=== PATIENT | male | born 1970 | race Caucasian/White ===

== ENCOUNTER 2018-08-02 10:29 | Emergency (ER) | payer BC ==
--- NOTE | 2018-08-02 10:52 | ER Document Report ---
ED Medical Screen (RME) - General Chief Complaint: Flank Pain Stated Complaint: FLANK PAIN Time Seen by Provider: 08/02/18 10:34 Primary Care Provider: CHRISTIN HEWITT DO [Primary Care Provider] - Follow up as needed Notes: 48-year-old male patient comes emergency room complaining of right lateral back pain just below the rib margin. He reports yesterday he was going between a sitting and standing position when he coughed hard and felt like a pulled muscle in that region. Since then with each cough the area will hurt. It was much worse this morning. He is also reporting a cough that is lasted greater than a month, he has been doing a lot of air travel recently. He also reports a recent exposure to the stachybotrys mold in a house in [facility]. He has seen an ear nose and throat doctor recently and had nasopharyngeal endoscopy. He was given an unknown medication to take. He is also recently been on a Z-Kb and a cough medications. I have greeted and performed a rapid initial assessment of this patient. A comprehensive ED assessment and evaluation of the patient, analysis of test results and completion of the medical decision making process will be conducted by additional ED providers. TRAVEL OUTSIDE OF THE [place] IN LAST 30 DAYS: No - Related Data Allergies/Adverse Reactions: No Known Allergies Allergy (Verified 08/02/18 10:30) Past Medical History - Social History Chew tobacco use (# tins/day): No Frequency of alcohol use: None Drug Abuse: None Renal/ Medical History: Denies: Hx Peritoneal Dialysis Physical Exam - Vital signs Vitals: Temp Pulse Resp BP Pulse Ox 98.9 F 65 16 153/86 H 99 08/02/18 10:33 08/02/18 10:33 08/02/18 10:33 08/02/18 10:33 08/02/18 10:33 Course - Vital Signs Vital signs: Temp Pulse Resp BP Pulse Ox 98.9 F 65 16 153/86 H 99 08/02/18 10:33 08/02/18 10:33 08/02/18 10:33 08/02/18 10:33 08/02/18 10:33 Doctor's Discharge - Discharge Referrals: CHRISTIN HEWITT DO [Primary Care Provider] - Follow up as needed
[2018-08-02 11:20] LABS: HEMATOCRIT 44.5 % (37.9-51.0); HEMOGLOBIN 15.6 g/dL (13.5-17.0); MEAN CORPUSCULAR HEMOGLOBIN 33.3 pg (27.0-33.4); MEAN CORPUSCULAR VOLUME 95 fl (80-97); PLATELET COUNT 253 10^3/uL (150-450); RED BLOOD COUNT 4.69 10^6/uL (4.35-5.55); RED CELL DISTRIBUTION WIDTH 13.4 % (11.5-14.0); WHITE BLOOD COUNT 8.4 10^3/uL (4.0-10.5)
--- NOTE | 2018-08-02 11:21 | RADIOLOGY REPORT (SQ) ---
EXAM DESCRIPTION: CHEST 2 VIEWS COMPLETED DATE/TIME: 08/02/2018 11:07 am REASON FOR STUDY: Congested cough X 1 month COMPARISON: None. EXAM PARAMETERS: NUMBER OF VIEWS: two views TECHNIQUE: Digital Frontal and Lateral radiographic views of the chest acquired. RADIATION DOSE: NA LIMITATIONS: none FINDINGS: LUNGS AND PLEURA: No opacities, masses or pneumothorax. No pleural effusion. MEDIASTINUM AND HILAR STRUCTURES: No masses or contour abnormalities. HEART AND VASCULAR STRUCTURES: Heart normal size. No evidence for failure. BONES: No acute findings. HARDWARE: None in the chest. OTHER: No other significant finding. IMPRESSION: NO ACUTE RADIOGRAPHIC FINDING IN THE CHEST. TECHNICAL DOCUMENTATION: JOB ID: [id number] [employer]- All Rights Reserved Reading location - IP/workstation name: [email or web address]
[2018-08-02 11:32] LABS: ALANINE AMINOTRANSFERASE 59 U/L (21-72); ALBUMIN 4.6 g/dL (3.5-5.0); ALKALINE PHOSPHATASE 68 U/L (38-126); ANION GAP 8 (5-19); ASPARTATE AMINO TRANSFERASE 33 U/L (17-59); BILIRUBIN,DIRECT 0.2 mg/dL (0.0-0.4); BILIRUBIN,TOTAL 0.4 mg/dL (0.2-1.3); BLOOD UREA NITROGEN 15 mg/dL (7-20); CALCIUM 9.5 mg/dL (8.4-10.2); CARBON DIOXIDE 30 mmol/L (22-30); CHLORIDE 105 mmol/L (98-107); GLUCOSE 98 mg/dL (75-110); POTASSIUM 5.2 mmol/L (3.6-5.0); SODIUM 143.3 mmol/L (137-145); TOTAL PROTEIN 7.6 g/dL (6.3-8.2)
[2018-08-02 11:46] LABS: ABSOLUTE MONOCYTES # (MANUAL) 1.1 10^3/uL (0.1-1.4); BASOPHILS % (MANUAL) 0 % (0-2); EOSINOPHILS % (MANUAL) 4 % (0-6); LYMPHOCYTES % (MANUAL) 12 % (13-45); MONOCYTES % (MANUAL) 13 % (3-13); PLATELET COMMENT ADEQUATE; SEGMENTED NEUTROPHILS % (MAN) 71 % (42-78); TOTAL CELLS COUNTED 100
--- NOTE | 2018-08-02 11:55 | ER Document Report ---
ED General - General Chief Complaint: Flank Pain Stated Complaint: FLANK PAIN Time Seen by Provider: 08/02/18 10:34 Primary Care Provider: CHRISTIN HEWITT DO [ASSOCIATE] - Follow up as needed Information source: Patient Notes: Patient is a 48-year-old male who presents today with what he states has been a cough for around 1 month. This did occur after a long flight. At that time he also has some runny nose and congestion. Patient has a friend in the medical field who provided a course of Augmentin as well as a course of azithromycin. He finished the azithromycin about 2 days ago. Patient states he has had no vomiting, chest pain, abdominal pain, or fevers. Patient states he still has a mild cough. Given the coinciding sore throat the patient also saw an ENT who supposedly "scoped" him. He states that they saw no acute abnormalities. They did put him on a medication that he believes was for reflux. Patient states he recently was going from a standing to sitting position and coughed and had acute right lower back pain. No radiation to the abdomen or groin. No weakness of the legs. No incontinence or dysuria. Patient did state that he was exposed to mold in the house around 3 weeks ago, but this was 1 week after the onset of the above symptomatology. TRAVEL OUTSIDE OF THE [place] IN LAST 30 DAYS: No - HPI Onset: Other - See above Quality of pain: Other - See above Severity: Mild Pain Level: Denies Associated symptoms: Other - See above Exacerbated by: Denies Relieved by: Denies Similar symptoms previously: No Recently seen / treated by doctor: No - Related Data Allergies/Adverse Reactions: No Known Allergies Allergy (Verified 08/02/18 10:30) Past Medical History - Social History Smoking Status: Never Smoker Chew tobacco use (# tins/day): No Frequency of alcohol use: None Drug Abuse: None Family History: Reviewed & Not Pertinent Patient has suicidal ideation: No Patient has homicidal ideation: No Renal/ Medical History: Denies: Hx Peritoneal Dialysis Review of Systems - Review of Systems Constitutional: denies: Fever EENT: Nose congestion. denies: Eye discharge Cardiovascular: denies: Chest pain, Palpitations Respiratory: denies: Cough, Short of breath Gastrointestinal: denies: Vomiting Genitourinary: denies: Dysuria Musculoskeletal: denies: Leg swelling Skin: Other - no hives. denies: Rash Neurological/Psychological: Other - no slurred speech -: Yes All other systems reviewed and negative Physical Exam - Vital signs Vitals: Temp Pulse Resp BP Pulse Ox 98.9 F 65 16 153/86 H 99 08/02/18 10:33 08/02/18 10:33 08/02/18 10:33 08/02/18 10:33 08/02/18 10:33 Notes: Reviewed vital signs and nursing note as charted by RN. CONSTITUTIONAL: Alert and oriented and responds appropriately to questions. Well-appearing; well-nourished HEAD: Normocephalic; atraumatic EYES: PERRL; Conjunctivae clear, sclerae non-icteric ENT: Normal nose; rhinorrhea; moist mucous membranes; pharynx without lesions noted NECK: Supple without meningismus; non-tender; no cervical lymphadenopathy, no ma sses CARD: Regular rate and rhythm; no murmurs; symmetric distal pulses RESP: Normal chest excursion without splinting or tachypnea; breath sounds clear and equal bilaterally; no wheezes, no rhonchi, no rales ABD/GI: Normal bowel sounds; non-distended; soft, non-tender to palpation all 4 quadrants of the abdomen BACK: The back appears normal and is non-tender to palpation; patient does have some mild right-sided CVA/lower rib tenderness without any crepitus, swelling, or erythema EXT: Normal ROM in all joints; non-tender to palpation; no edema SKIN: No acute lesions noted NEURO: CN 2-12 intact; 5/5 bilateral upper and lower extremity strength with sensation intact to light touch PSYCH: The patient's mood and manner are appropriate. Grooming and personal hygiene are appropriate. Course - Re-evaluation Re-evalutation: Given the history and physical examination, we will obtain basic labs, urinalysis, x-ray of the chest, and reassess. Given the patient's multiple flights I will add a d-dimer. 08/02/18 11:55 X-ray of the chest as recorded. Labs thus far as recorded. Urine analysis is pending. 08/02/18 13:11 Labs, d-dimer, x-ray, and CT scan as recorded. Vital signs are stable. No change in examination. Still no weakness of the legs or foot drop noted. Given the above extensive history and physical, patient will be discharged home with strict return precautions and follow-up with the primary care physician as well as pulmonology given the patient's chronic cough. - Vital Signs Vital signs: Temp Pulse Resp BP Pulse Ox 98.9 F 65 16 153/86 H 99 08/02/18 10:33 08/02/18 10:33 08/02/18 10:33 08/02/18 10:33 08/02/18 10:33 - Laboratory Result Diagrams: 08/02/18 10:47 08/02/18 10:47 Laboratory results interpreted by me: 08/02/18 08/02/18 10:47 10:47 Lymphocytes % (Manual) 12 L Potassium 5.2 H Discharge - Discharge Clinical Impression: Cough, Right flank pain Condition: Good Disposition: HOME, SELF-CARE Additional Instructions: Come back immediately for any increased cough, shortness of breath, fever, change in location or quality of pain, weakness of the legs, incontinence, or any other acute problems. Please follow-up with your primary care physician and the small business sales representative as we have discussed and provided. Referrals: CHRISTIN HEWITT DO [ASSOCIATE] - Follow up as needed FAHAD BOYD MD [ACTIVE STAFF] - Follow up as needed
[2018-08-02 12:19] LABS: APPEARANCE,URINE CLEAR; BILIRUBIN,URINE NEGATIVE (NEGATIVE); COLOR,URINE STRAW; GLUCOSE, URINE NEGATIVE (NEGATIVE); KETONES,URINE NEGATIVE (NEGATIVE); LEUKOCYTE ESTERASE,URINE NEGATIVE (NEGATIVE); NITRITE,URINE NEGATIVE (NEGATIVE); PROTEIN,URINE NEGATIVE (NEGATIVE); URINE SPECIFIC GRAVITY 1.004; UROBILINOGEN,URINE NEGATIVE mg/dL (<2.0)
--- NOTE | 2018-08-02 12:45 | RADIOLOGY REPORT (SQ) ---
EXAM DESCRIPTION: CT LTD RENAL STONE PROTOCOL ON COMPLETED DATE/TIME: 08/02/2018 12:13 pm REASON FOR STUDY: flank pain right Prior appendectomy. COMPARISON: None. TECHNIQUE: CT scan of the abdomen and pelvis performed without intravenous or oral contrast. Images reviewed with lung, soft tissue, and bone windows. Reconstructed coronal and sagittal MPR images revi ewed. All images stored on PACS. All CT scanners at this facility use dose modulation, iterative reconstruction, and/or weight based d osing when appropriate to reduce radiation dose to as low as reasonably achievable (ALARA). [facility]: Dose Right [facility]: CareDose [facility]: Dose Right [facility]: Teradose 4D [facility]: Smart Solle Naturals RADIATION DOSE: CT Rad equipment meets quality standard of care and radiation dose reduction techniq ues were employed. CTDIvol: 15.8 mGy. DLP: 927 mGy-cm.mGy. LIMITATIONS: Motion artifact. FINDINGS: Stone CT LOWER CHEST: No consolidation or pleural effusion. NON-CONTRASTED LIVER, SPLEEN, ADRENALS: Evaluation limited by lack of IV contrast. No identified sign ificant masses. The liver demonstrates diffuse decreased attenuation, most consistent with fatty inf iltration. PANCREAS: No peripancreatic inflammatory changes. GALLBLADDER: Present. RIGHT KIDNEY AND URETER: Assessment for masses limited by lack of IV contrast. No significant calci fications. No hydronephrosis or hydroureter. LEFT KIDNEY AND URETER: Assessment for masses limited by lack of IV contrast. No significant calcif ications. No hydronephrosis or hydroureter. AORTA AND RETROPERITONEUM: No abdominal aortic aneurysm. No retroperitoneal masses or hemorrhage. BOWEL AND PERITONEAL CAVITY: No dilated bowel loops or inflammatory changes. No free fluid. APPENDIX: Surgically absent. PELVIS, BLADDER, AND ABDOMINAL WALL:The prostate measures 4.2 cm in transverse diameter. Coarse calc ifications are noted at the prostate. No free fluid. The urinary bladder is partially distended wit h diffuse wall thickening measuring 11 mm. BONES: There is bilateral pars defect at L5 with mild anterolisthesis of L5 on S1. IMPRESSION: 1. No obstructing ureteral calculus or hydronephrosis. Wall thickening of the urinary bladder, may be secondary to under distention, chronic outlet obstruction, cystitis or neoplasm. Ple ase correlate with laboratory values. 2. Fatty infiltration of the liver. 3. Bilateral pars defect at L5 with mild anterolisthesis of L5 on S1. COMMENT: Quality ID # [id number]: Final reports with documentation of one or more dose reduction techniques (e.g., Automated exposure control, adjustment of the mA and/or kV according to patient size, use of iterative reconstruction technique) TECHNICAL DOCUMENTATION: JOB ID: [id number] [employer]- All Rights Reserved Reading location - IP/workstation name: [email or web address]
[2018-08-02 13:35] VITALS: BP 146/81
== END 2018-08-02 13:35 | disposition home or self-care (01) ==
LOC: ER 10:29
DX: R05 Cough (principal); R10.9 Unspecified abdominal pain; R09.89 Other specified symptoms and signs involving the circulatory and respiratory systems; J02.9 Acute pharyngitis, unspecified; M54.5 Low back pain; Z77.120 Contact with and (suspected) exposure to mold (toxic); R09.81 Nasal congestion
CPT/HCPCS: 36415; 71046; 76380; 80053; 81001; 85025; 85379; 99284